=== PATIENT | female | born 1945 | race Caucasian/White ===

== ENCOUNTER 2018-07-26 16:11 | Emergency (ER) | payer MEDICARE, BC ==
[2018-07-26] MEDS ORDERED: diphenhydrAMINE 50 MG/ML VIAL ONE (17:40)
[2018-07-26] MEDS ORDERED: methylPREDNISolone Sod Succ/PF 125 MG/2 ML VIAL ONE (17:40)
[2018-07-26] MEDS ORDERED: Famotidine/PF 20 mg/2ml Vial ONE (17:40)
[2018-07-26] MEDS ORDERED: valACYclovir HCl 1 GM TAB PO SCH (18:15)
[2018-07-26] MEDS ORDERED: predniSONE 20 MG TAB ONE (18:21)
[2018-07-26] MEDS ORDERED: valACYclovir 500 MG TAB PO SCH (18:30)
== END 2018-07-26 18:53 | disposition home or self-care (01) ==
LOC: ERS 16:11
DX: B02.9 Zoster without complications (principal); J06.9 Acute upper respiratory infection, unspecified; F17.210 Nicotine dependence, cigarettes, uncomplicated
CPT/HCPCS: 93005; J1200; J2930; S0028

== ENCOUNTER 2018-07-29 13:24 | Emergency (ER) | payer MEDICARE, BC ==
[2018-07-29] MEDS ORDERED: Morphine 4 MG/ML VIAL ONE (14:59)
[2018-07-29] MEDS ORDERED: methylPREDNISolone Sod Succ/PF 125 MG/2 ML VIAL ONE (14:59)
--- NOTE | 2018-07-29 15:06 | RAD ---
SINGLE VIEW OF THE CHEST: Comparison: None. History: Chest pain. FINDINGS: Single view of the chest shows a normal sized cardiomediastinal silhouette. There is no evidence of c onsolidation, mass, or pleural effusion. The bones are unremarkable. IMPRESSION: No evidence of acute cardiopulmonary disease. POS: [facility]
[2018-07-29 15:23] LABS: #Lymphocytes 0.6 thou/uL (1.20-3.40); #Monocytes 0.3 thou/uL (0.11-0.59); #Neutrophils 5.6 thou/uL (1.40-6.50); %Basophils 0.2 % (0.0-1.0); %Eosinophils 0.2 % (0.0-10.0); %Lymphocytes 8.8 % (21.0-51.0); %Monocytes 3.8 % (0.0-10.0); Hemoglobin 14.3 g/dL (12.0-16.0); Mean Corpuscular HGB CONC 32.9 g/dL (32.0-36.0); Mean Corpuscular Hemoglobin 31.4 pg (27.0-31.0); Mean Corpuscular Volume 95.2 fL (78.0-98.0); Mean Platelet Volume 6.9 fL (7.4-10.4); Platelet Count 216 thou/uL (130-400); RBC Distribution Width 11.7 % (11.5-14.5); Red Blood Cell (RBC) Count 4.56 mill/uL (4.20-5.40); White Blood Cell (WBC) Count 6.4 thou/uL (4.8-10.8)
[2018-07-29 15:40] LABS: ALT (SGPT) 93 U/L (8-55); AST (SGOT) 62 U/L (5-34); Albumin 4.1 g/dL (3.4-4.8); Alkaline Phosphatase 80 U/L (40-150); Anion Gap 12 mmol/L (10-20); BUN (Urea Nitrogen) 13 mg/dL (9.8-20.1); Bilirubin, Total 0.6 mg/dL (0.2-1.2); CK (CPK) 116 U/L (29-168); Calc. Creatinine Clearance 0 mL/min (70-130); Calcium 9.3 mg/dL (7.8-10.44); Carbon Dioxide 27 mmol/L (23-31); Chloride 97 mmol/L (98-107); Estimated GFR-MDRD 79; Globulin 3.2 g/dL (2.4-3.5); Glucose 179 mg/dL (83-110); Potassium 4.4 mmol/L (3.5-5.1); Protein, Total 7.3 g/dL (6.0-8.3); Sodium 132 mmol/L (136-145)
--- NOTE | 2018-07-29 16:36 | CT ---
NONCONTRAST CT HEAD: Date: 07/29/18 HISTORY: Headache. Flareup of shingles. Blistering over right eye and in scalp. COMPARISON: None available. FINDINGS: There is no evidence of a hemorrhage, acute infarction, mass effect, or midline shift. Mild cerebral volume loss is present, not unexpected for the patient's age. Ventricular system is normal in size, s hape, and position. There is mild mucosal thickening in the left sphenoid sinus. The remainder of the visualized paranasal sinuses and mastoid air cells are clear. The calvarial structures have a normal appearance. IMPRESSION: 1. No acute intracranial abnormality is demonstrated. 2. Minimal sinus disease involving the left sphenoid sinus. POS: [facility]
--- NOTE | 2018-08-01 20:33 | EKG ---
Test Reason : BODYACHES Blood Pressure : / mmHG Vent. Rate : 079 BPM Atrial Rate : 079 BPM P-R Int : 132 ms QRS Dur : 086 ms QT Int : 368 ms P-R-T Axes : 073 047 034 degrees QTc Int : 421 ms Normal sinus rhythm Normal ECG Confirmed by ROXY KHOURY MD ([id number]), makeup editor PRAVEEN PATEL ([id number]) on 08/01/2018 8:33:22 PM Referred By: DR KHOURY Confirmed By:ROXY KHOURY MD
--- NOTE | 2018-08-03 05:53 | PQF ---
[facility] POST DISCHARGE CLINICAL DOCUMENTATION IMPROVEMENT CLARIFICATION FORM l Todays Date: 08/01/18 l Patients Name GUNJAN BERNAL l l Admit Date 07/29/18 l Disch Date 07/29/18 Prop And Effects Designer Name HALLEWAI [email or web address] To be completed by Prop And Effects Designer: Present Clinical Indicators - Signs / Symptoms Results and Location in Medical Record [ ] Documentation of: [ ] [ ] Documentation of: [ ] [ ] Documentation of: [ ] [ ] Documentation of: [ ] [ ] Risks [ ] [ ] [ ] Treatment [ ] BRONCHITIS MISSING SPECIFICITY FOR BRONCHITIS WHETHER ACUTE OR CHRONIC PLEASE CLARIFY. [ ] [ ] To be completed by Physician DO Boothe Matthew The documentation in this patients record requires clarification to ensure coding compliance and accuracy. Check the appropriate box and include in your discharge summary. [X ] Acute Bronchitis [ ] [ ] [ ] Please check this box if this does not apply to this patient [ ] Unable to determine [ ] Other diagnosis: Review the following information and exercise your independent professional judgment in responding to the clarification. Based upon the clinical findings, risk factors, and treatment, please clarify if you are treating one of the above probable or suspected diagnoses. Physician Signature: Date Time JOSE JD
== END 2018-07-29 16:38 | disposition home or self-care (01) ==
LOC: ERS 13:24
DX: J20.9 Acute bronchitis, unspecified (principal); B02.9 Zoster without complications; E86.0 Dehydration; F17.210 Nicotine dependence, cigarettes, uncomplicated; Z79.891 Long term (current) use of opiate analgesic; Z79.899 Other long term (current) drug therapy
CPT/HCPCS: 36415; 70450; 71045; 80053; 82550; 83880; 84484; 85025; 93005; 94640; 94760; 96361; 96374; 96375; J2270; J2930; J7620

== ENCOUNTER 2019-01-27 08:30 | Outpatient (CLI) | payer MEDICARE, BC ==
--- NOTE | 2019-02-01 15:21 | MMO ---
Bilateral MAMMO Bilat Screen [facility]. CLINICAL HISTORY: Patient is 73 years old and is seen for screening. The patient has no family history of breast cancer. The patient has no personal history of cancer. VIEWS: The views performed were: bilateral craniocaudal with tomosynthesis and bilateral mediolateral oblique with tomosynthesis. FILMS COMPARED: The present examination has been compared to prior imaging studies performed at [facility] on 04/13/2010, 02/04/2014 and 08/16/2014. MAMMOGRAM FINDINGS: There are scattered fibroglandular densities. There are benign appearing calcifications seen in both breasts. There are no suspicious masses, suspicious calcifications, or new areas of architectural distortion. IMPRESSION: THERE IS NO MAMMOGRAPHIC EVIDENCE OF MALIGNANCY. A ROUTINE FOLLOW-UP MAMMOGRAM IN 1 YEAR IS RECOMMENDED. THE RESULTS OF THIS EXAM WERE SENT TO THE PATIENT. ACR BI-RADS Category 2 - Benign finding MAMMOGRAPHY NOTE: 1. A negative mammogram report should not delay a biopsy if a dominant of clinically suspicious mass is present. 2. Approximately 10% to 15% of breast cancers are not detected by mammography. 3. Adenosis and dense breasts may obscure an underlying neoplasm. Reported by: JAVIER AVILEZ MD Electonically Signed: [id number]
== END 2019-01-27 08:31 | disposition home or self-care (01) ==
LOC: BICMAMMO 08:30
PROVIDERS: ATTEND Internal Medicine
DX: Z12.31 Encounter for screening mammogram for malignant neoplasm of breast (principal)
CPT/HCPCS: 77063; 77067

== ENCOUNTER 2019-10-07 15:47 | Outpatient (CLI) | payer MEDICARE, BC | END 2019-10-07 15:48 | disposition home or self-care (01) | LOC: CTENTCT 15:47 | PROVIDERS: ATTEND Otolaryngology Plastic Surgery within the Head & Neck | DX: J01.90 Acute sinusitis, unspecified (principal) | CPT/HCPCS: 70486 ==

== ENCOUNTER 2020-06-13 11:48 | Outpatient (CLI) | payer MEDICARE ==
--- NOTE | 2020-06-13 12:47 | MMO ---
Bilateral MAMMO Bilat Screen [facility]. CLINICAL HISTORY: Patient is 74 years old and is seen for screening. The patient has no family history of breast cancer. The patient has no personal history of cancer. VIEWS: The views performed were: bilateral craniocaudal with tomosynthesis and bilateral mediolateral oblique with tomosynthesis. FILMS COMPARED: The present examination has been compared to prior imaging studies performed at [facility] on 04/13/2010, 02/04/2014 and 08/16/2014, and at [facility] on 01/27/2019. This study has been interpreted with the assistance of computer-aided detection. MAMMOGRAM FINDINGS: There are scattered fibroglandular densities. There are stable benign appearing calcifications seen in both breasts. There are no suspicious masses, suspicious calcifications, or new areas of architectural distortion. IMPRESSION: THERE IS NO MAMMOGRAPHIC EVIDENCE OF MALIGNANCY. A ROUTINE FOLLOW-UP MAMMOGRAM IN 1 YEAR IS RECOMMENDED. THE RESULTS OF THIS EXAM WERE SENT TO THE PATIENT. ACR BI-RADS Category 2 - Benign finding MAMMOGRAPHY NOTE: 1. A negative mammogram report should not delay a biopsy if a dominant of clinically suspicious mass is present. 2. Approximately 10% to 15% of breast cancers are not detected by mammography. 3. Adenosis and dense breasts may obscure an underlying neoplasm. Reported by: DICK HOLMAN MD Electonically Signed: [id number]
== END 2020-06-13 11:49 | disposition home or self-care (01) ==
LOC: BICMAMMO 11:48
PROVIDERS: ATTEND Internal Medicine
DX: Z12.31 Encounter for screening mammogram for malignant neoplasm of breast (principal)
CPT/HCPCS: 77063; 77067

== ENCOUNTER 2020-11-23 14:36 | Outpatient (CLI) | payer MEDICARE | END 2020-11-23 14:37 | disposition home or self-care (01) | LOC: CTENTCT 14:36 | PROVIDERS: ATTEND Otolaryngology Plastic Surgery within the Head & Neck | DX: J32.8 Other chronic sinusitis (principal) | CPT/HCPCS: 70486 ==

== ENCOUNTER 2021-02-12 11:33 | Outpatient (CLI) | payer MEDICARE | END 2021-02-12 11:34 | disposition home or self-care (01) | LOC: CTENTCT 11:33 | PROVIDERS: ATTEND Otolaryngology Plastic Surgery within the Head & Neck | DX: J32.8 Other chronic sinusitis (principal) | CPT/HCPCS: 70486 ==

== ENCOUNTER 2021-07-13 07:35 | Outpatient (CLI) | payer MEDICARE | END 2021-07-13 07:36 | disposition home or self-care (01) | LOC: SCSMRI 07:35 | PROVIDERS: ATTEND Podiatrist Foot & Ankle Surgery | DX: M79.672 Pain in left foot (principal); S90.32XA Contusion of left foot, initial encounter; M79.89 Other specified soft tissue disorders ==

== ENCOUNTER 2022-10-07 11:19 | Outpatient (CLI) | payer MEDICARE | END 2022-10-07 11:20 | disposition home or self-care (01) | LOC: BICMAMMO 11:19 | PROVIDERS: ATTEND Internal Medicine | DX: Z12.31 Encounter for screening mammogram for malignant neoplasm of breast (principal) | CPT/HCPCS: 77063; 77067 ==

== ENCOUNTER 2022-11-06 06:56 | Day surgery (SDC) | payer MEDICARE ==
[2022-11-05 14:35] VITALS: BMI 41.3
[2022-11-06 08:21] LABS: #Basophils 0.1 thou/uL (0.0-0.2); #Eosinphils 0.2 thou/uL (0.0-0.7); #Monocytes 0.5 thou/uL (0.11-0.59); #Neutrophils 4.7 thou/uL (1.40-6.50); %Basophils 0.8 % (0.0-1.0); %Eosinophils 3.2 % (0.0-10.0); %Monocytes 6.9 % (0.0-10.0); %Neutrophils 66.7 % (42.0-75.0); Hemoglobin 13.8 g/dL (12.0-16.0); Mean Corpuscular HGB CONC 31.7 g/dL (32.0-36.0); Mean Corpuscular Hemoglobin 30.3 pg (27.0-31.0); Mean Corpuscular Volume 95.4 fl (78.0-98.0); Mean Platelet Volume 9.6 fL (7.4-10.4); Platelet Count 220 10x3/uL (130-400); RBC Distribution Width 12.8 % (11.5-14.5); Red Blood Cell (RBC) Count 4.56 mill/uL (4.20-5.40); White Blood Cell (WBC) Count 7.1 10x3/uL (4.8-10.8)
[2022-11-06 08:48] LABS: Anion Gap 12 mmol/L (10-20); BUN (Urea Nitrogen) 15 mg/dL (9.8-20.1); Calc. Creatinine Clearance 79 mL/min (70-130); Calcium 9.5 mg/dL (7.8-10.44); Carbon Dioxide 24 mmol/L (23-31); Chloride 105 mmol/L (98-107); Estimated GFR 85; Glucose 97 mg/dL (83-110); Potassium 4.2 mmol/L (3.5-5.1); Sodium 137 mmol/L (136-145)
[2022-11-06] MEDS ORDERED: Heparin 10,000 UNITS/ 10 ML VIAL ONE (09:17)
[2022-11-06] MEDS ORDERED: Lidocaine 1% (PF) 30 ML VIAL ONE (09:17)
[2022-11-06] MEDS ORDERED: fentaNYL 50 mcg/mL 1 mL Vial ONE (09:18)
[2022-11-06] MEDS ORDERED: Midazolam HCl 2 mg/2 ml Vial ONE (09:18)
[2022-11-06] MEDS ORDERED: Acetaminophen 325 MG TAB ONE (11:41)
[2022-11-06] MEDS ORDERED: Aspirin 325 MG TAB ONE (11:42)
[2022-11-06] MEDS ORDERED: Iopamidol 370 76% 100 ML VIAL ONE (15:15)
== END 2022-11-06 13:40 | disposition home or self-care (01) ==
LOC: SDC 06:56
PROVIDERS: ATTEND Thoracic Surgery (Cardiothoracic Vascular Surgery)
DX: I73.9 Peripheral vascular disease, unspecified (principal); F17.210 Nicotine dependence, cigarettes, uncomplicated; Z96.653 Presence of artificial knee joint, bilateral; Z88.0 Allergy status to penicillin; Z88.8 Allergy status to other drugs, medicaments and biological substances; Z79.899 Other long term (current) drug therapy
CPT/HCPCS: 80048; 85025; 85347; C1760; C1769 ×4; C1887 ×2; J3010; 36245; 37221; 99152; 99153; J1644; J2001; J2250; Q9967

== ENCOUNTER 2025-02-23 14:41 | Outpatient (CLI) | payer MEDICARE | END 2025-02-23 14:42 | disposition home or self-care (01) | LOC: BICMAMMO 14:41 | PROVIDERS: ATTEND Internal Medicine | DX: Z12.31 Encounter for screening mammogram for malignant neoplasm of breast (principal); Z80.3 Family history of malignant neoplasm of breast | CPT/HCPCS: 77063; 77067 ==